=== PATIENT | female | born 1990 | race Asian ===

== ENCOUNTER 2021-05-03 17:07 | Inpatient (IN) ==
[2021-05-03] MEDS ORDERED: NS 0.9% 1000 ml BAG 1,000 ML IV ONE ×2 (17:29→17:30)
[2021-05-03] MEDS ORDERED: cefTRIAXone 1 gm/50 mL NS BAG 1 GM/50 ML BAG IV ONE (17:30)
[2021-05-03 17:39] LABS: ABS Lymphocytes 0.6 10^3/ul (1.0-4.8); ABS Monocytes 0.5 10^3/ul (0-0.8); ABS Neutrophils 10.5 10^3/ul (1.5-7.7); Eosinophil % 0.1 %; Hematocrit 46 % (35-47); Hemoglobin 15.8 g/dL (12.0-16.0); Mean Corpuscular HGB Conc 34 g/dL (31-36); Mean Corpuscular Hemoglobin 31 pg (27-31); Mean Corpuscular Volume 92 fL (80-97); Mean Platelet Volume 9.2 fL (7.4-10.4); Platelet Count 382 10^3/uL (150-450); Red Blood Count 5.03 10^6 /uL (3.70-4.87); Red Cell Distribution Width 13 % (10-15); White Blood Count 11.6 10^3/uL (3.5-10.8)
[2021-05-03 17:50] LABS: Albumin 4.8 g/dL (3.2-5.2); Calcium 9.6 mg/dL (8.6-10.3); EGFR Non-African American 78.5 (>60); Potassium 3.4 mmol/L (3.5-5.0); Total Protein 8.8 g/dL (6.4-8.9)
[2021-05-03 17:51] LABS: Albumin/Globulin Ratio 1.2 (1-3); C Reactive Protein 239.75 mg/L (<8.01); Total Bilirubin 0.8 mg/dL (0.2-1.0)
[2021-05-03 17:57] LABS: HCG Pregnancy 1.72 mIU/mL
[2021-05-03 18:21] LABS: Influenza A Molecular Negative (Negative); Influenza B Molecular Negative (Negative)
[2021-05-03 18:58] LABS: Urine Appearance Cloudy; Urine Bilirubin Negative (Negative); Urine Blood 3+ (Negative); Urine Color Yellow; Urine Glucose Negative (Negative); Urine Ketones 1+ (Negative); Urine Nitrite Negative (Negative); Urine Protein 2+(100 mg/dL) (Negative); Urine Specific Gravity 1.006 (1.002-1.030); Urine Urobilinogen Negative (Negative)
[2021-05-03 19:03] LABS: Urine Bacteria Absent (Absent); Urine Red Blood Cell Trace(0-2/hpf) (Absent); Urine Squamous Epithelial Cell Present (Absent); Urine White Blood Cell Trace(0-5/hpf) (Absent)
[2021-05-04 02:07] LABS: Hepatitis B Surface Antigen Nonreactive (Nonreactive)
[2021-05-04 02:12] LABS: Hepatitis A Ab IgM Negative (Negative); Hepatitis B Core IgM Nonreactive (Nonreactive)
[2021-05-04 02:24] LABS: Hepatitis C Antibody Negative (Negative)
[2021-05-04] MEDS ORDERED: Potassium Chlor 20 meq TAB.ER PO ONE (03:02)
[2021-05-04] MEDS: NS 0.9% 1000 ml BAG 1,000 ML IV SCH ×3 (04:47→22:25)
[2021-05-04 05:11] LABS: Hematocrit 43 % (35-47); Hemoglobin 14.2 g/dL (12.0-16.0); Mean Corpuscular HGB Conc 33 g/dL (31-36); Mean Corpuscular Hemoglobin 31 pg (27-31); Mean Corpuscular Volume 93 fL (80-97); Mean Platelet Volume 9.3 fL (7.4-10.4); Platelet Count 264 10^3/uL (150-450); Red Blood Count 4.64 10^6 /uL (3.70-4.87); Red Cell Distribution Width 13 % (10-15); White Blood Count 11.2 10^3/uL (3.5-10.8)
[2021-05-04 05:34] LABS: ABS Lymphocytes 0.6 10^3/ul (1.0-4.8); ABS Monocytes 0.6 10^3/ul (0-0.8); Eosinophil % 0.1 %; Lymphocyte % 5.7 %
[2021-05-04 06:06] LABS: Albumin 3.7 g/dL (3.2-5.2); Calcium 8.2 mg/dL (8.6-10.3); Indirect Bilirubin 0.5 mg/dL (0.3-1.0); Potassium 3.9 mmol/L (3.5-5.0); Total Bilirubin 0.7 mg/dL (0.2-1.0)
[2021-05-04 06:12] LABS: Albumin/Globulin Ratio 1.4 (1-3); EGFR African American 136.8 (>60); Globulin 2.7 g/dL (2-4); Total Protein 6.4 g/dL (6.4-8.9)
[2021-05-04] MEDS ORDERED: Vancomycin per Pharmacy 1 EA NOTE FOLLOW UP PRN (08:28)
[2021-05-04] MEDS ORDERED: Vancomycin 1,000 MG in NS 0.9% 250 ml 250 ML IVPB ONE (09:00)
[2021-05-04 10:51] LABS: Myoglobin 17.5 ng/mL (14.3-65.8)
[2021-05-04] MEDS: Vancomycin 750 MG in NS 0.9% 250 ML IVPB SCH (17:45)
[2021-05-04] MEDS ORDERED: cefTRIAXone 1 gm/50 mL NS BAG 1 GM/50 ML BAG IVPB SCH (18:00)
[2021-05-05] MEDS: Vancomycin 750 MG in NS 0.9% 250 ML IVPB SCH ×2 (01:55→09:50)
[2021-05-05 06:19] LABS: ABS Eosinophils 0.1 10^3/ul (0-0.6); ABS Lymphocytes 1.3 10^3/ul (1.0-4.8); ABS Monocytes 0.6 10^3/ul (0-0.8); Eosinophil % 0.9 %; Hematocrit 32 % (35-47); Hemoglobin 10.6 g/dL (12.0-16.0); Lymphocyte % 22.3 %; Mean Corpuscular HGB Conc 33 g/dL (31-36); Mean Corpuscular Hemoglobin 31 pg (27-31); Mean Corpuscular Volume 93 fL (80-97); Mean Platelet Volume 9.3 fL (7.4-10.4); Nucleated Red Blood Cells % 0.1; Platelet Count 240 10^3/uL (150-450); Red Blood Count 3.48 10^6 /uL (3.70-4.87); Red Cell Distribution Width 13 % (10-15); White Blood Count 5.9 10^3/uL (3.5-10.8)
[2021-05-05 06:35] LABS: Albumin/Globulin Ratio 1.1 (1-3); C Reactive Protein 191.99 mg/L (<8.01); Calcium 7.8 mg/dL (8.6-10.3); EGFR African American 160.4 (>60); EGFR Non-African American 132.6 (>60); Globulin 2.8 g/dL (2-4); Magnesium 1.9 mg/dL (1.9-2.7); Potassium 3.6 mmol/L (3.5-5.0); Total Bilirubin 0.2 mg/dL (0.2-1.0); Total Protein 5.8 g/dL (6.4-8.9)
[2021-05-05] MEDS: NS 0.9% 1000 ml BAG 1,000 ML IV SCH (09:45)
[2021-05-05 13:11] LABS: TB1 Ag minus Nil Result 0.08 IU/mL; TB2 Ag minus Nil Result -0.31 IU/mL
[2021-05-05 13:15] LABS: QuantiferonTb Gold Plus Result Negative (Negative)
[2021-05-05 14:52] LABS: Hematocrit 35 % (35-47); Hemoglobin 11.7 g/dL (12.0-16.0)
[2021-05-05 15:34] VITALS: BP 107/71
[2021-05-05] MEDS ORDERED: Vancomycin Trough Check NOTE FOLLOW UP ONE (17:30)
== END 2021-05-05 17:05 | disposition home or self-care (01) ==
LOC: ED 17:07 → MEDTELE 17:07
PROVIDERS: ADMIT Hospitalist; ATTEND Hospitalist